=== PATIENT | male | born 1960 | race Caucasian/White ===

== ENCOUNTER 2017-09-16 13:49 | Observation (INO) | payer OTHER ==
[2017-09-16] MEDS ORDERED: Sodium Chloride 0.9% 1,000 ML IV ONE (13:58)
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
--- NOTE | 2017-09-16 14:09 | CR ---
EXAMINATION: Portable chest radiograph. HISTORY: Shortness of breath. FINDINGS: The trachea is midline. The cardiomediastinal silhouette is within normal limits. Mild left basilar a telectasis and/or infiltrate. No pleural effusion or pneumothorax. Osseous structures appear unremarkable. IMPRESSION: Mild left basilar atelectasis and/or infiltrate.
--- NOTE | 2017-09-16 14:12 | CR ---
EXAMINATION: Pelvis HISTORY: Pain COMPARISON: None TECHNIQUE: Single AP view FINDINGS: There is no acute osseous abnormality, dislocation, or fracture. Mild widening of the femor al heads bilaterally. Old healed fracture deformity of the left femur. SI joints are symmetric. The i liopectineal and ilioischial lines are intact. IMPRESSION: No acute osseous abnormality noted.
--- NOTE | 2017-09-16 14:22 | CT ---
EXAMINATION: Non contrast CT head. Coronal and sagittal reformats. HISTORY: Pain FINDINGS: No evidence of intra or extra axial hemorrhage, mass, midline shift, hydrocephalus or edema. No hypoattenuation changes in the major vascular territories to suggest acute infarct. No abnormal intracranial calcifications are detected. No evidence of substantial vascular calcificat ions. Paranasal sinuses and mastoid air cells are well aerated without substantial findings. Orbits and gl obes are symmetric. Pituitary fossa appears unremarkable. Calvarium is intact. No evidence of skull fracture. IMPRESSION: No acute intracranial findings.
--- NOTE | 2017-09-16 14:31 | CT ---
EXAMINATION: CT cervical spine without contrast HISTORY: Pain COMPARISON: None TECHNIQUE: Axial CT images obtained through the cervical spine without contrast. Coronal and sagittal reconstructions obtained. The cervical spinal alignment is normal. Vertebral body heights and disc s paces appear well-maintained. FINDINGS: There is a fracture through the base of the superior facet at C7 on the left extending slig htly into the transverse process. There is possibly a minimal fracture component along the overlying inferior facet of T6. The superior T6 silhouette does not appear to be. Chest however the superior T7 process appears minimally displaced anteriorly. Otherwise no acute osseous abnormality identified. B one mineralization is normal. Early marginal osteophytes are demonstrated. Prevertebral soft tissues are within normal limits. No significant soft tissue swelling. Lung apices are clear. IMPRESSION: 1. Essentially nondisplaced fracture through the superior left facet at C7 and a tiny fracture along the inferior aspect of the inferior left C6 facet. 2. Otherwise no acute findings noted.
--- NOTE | 2017-09-16 14:44 | CR ---
EXAMINATION: Left forearm HISTORY: Pain COMPARISON: None TECHNIQUE: 2 views FINDINGS/IMPRESSION: There is no acute osseous abnormality, dislocation, or fracture. Follow minerali zation and joint spaces appear preserved. Minimal soft tissue swelling overlying the olecranon. Proba ble old ulnar styloid fracture.
[2017-09-16] MEDS ORDERED: Morphine 2 MG/ML Syringe IVPUSH ONE ×2 (14:54→15:16)
[2017-09-16 15:16] LABS: CHLORIDE,CL 103 mmol/L (98-107); SODIUM,NA 138 mmol/L (136-148)
[2017-09-16] MEDS ORDERED: Diphtheria,Pertussis(Acell),Tetanus Vaccine 0.5 ML Syringe IM ONE (16:05)
[2017-09-16] MEDS ORDERED: Ondansetron 4 MG/2 ML SDV IVPUSH PRN (16:36)
[2017-09-16] MEDS ORDERED: Bisacodyl 5 MG Tab PO PRN (16:36)
[2017-09-16] MEDS ORDERED: diphenhydrAMINE 50 MG/ML SDV IVPUSH PRN (16:36)
[2017-09-16] MEDS ORDERED: Acetaminophen/oxyCODONE 325-5 MG Tab PO PRN (16:36)
[2017-09-16] MEDS ORDERED: HYDROmorphone 2 MG/ML SDV IVPUSH PRN (16:36)
[2017-09-16] MEDS ORDERED: Ketorolac 15 MG/ML SDV IM SCH (16:45)
[2017-09-16] MEDS ORDERED: Lactated Ringers 1,000 ML IV SCH (16:45)
[2017-09-16] MEDS ORDERED: Acetaminophen/oxyCODONE 325-5 MG Tab PO ONE (17:01)
[2017-09-16] MEDS ORDERED: HYDROmorphone 1 MG/ML Syringe IVPUSH ONE (17:08)
[2017-09-16] MEDS ORDERED: HYDROmorphone 1 MG/ML Syringe ONE (17:09)
[2017-09-16] MEDS: Cyclobenzaprine 5 MG Tab PO SCH ×2 (19:49→22:17)
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
[2017-09-16] MEDS: Ketorolac 10 MG Tab PO SCH (22:16)
[2017-09-17] MEDS: Ketorolac 10 MG Tab PO SCH ×2 (04:38→09:40)
[2017-09-17] MEDS: Cyclobenzaprine 5 MG Tab PO SCH ×2 (06:24→13:16)
[2017-09-17] MEDS ORDERED: Tamsulosin 0.4 MG Cap.ER PO SCH (08:30)
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
[2017-09-17] MEDS ORDERED: HYDROmorphone 2 MG Tab PO PRN (09:57)
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
--- NOTE | 2017-09-18 09:31 | CR ---
EXAM DATE: 09/16/17 PATIENT'S AGE: 57 Patient: SHAUNNA ROSAS Facility: [place], [place] Site . Site : 1960 Study: XRay Extremity Left elbow [id number]/3/2018 5:11:09 PM Ordering Physician: Felicia Hatfield Final Report: INDICATION: pain over olecranon TECHNIQUE: Two views of the left elbow COMPARISON: None FINDINGS: Bones: No fractures or bone lesions. Joint spaces: Unremarkable. Soft tissues: Unremarkable. IMPRESSION: No acute bony abnormality Dictated by Chalino Paz MD @ 09/16/2017 5:54:10 PM Dictated by: Chalino Paz MD @ 09/16/2017 17:54:19 (Electronic Signature) Report Signed by Proxy. [facility]
== END 2017-09-17 14:00 | disposition home or self-care (01) ==
LOC: MW.ED 13:49 → MW.MS 16:36
PROVIDERS: ADMIT Surgery; ATTEND Surgery
DX: S22.010A Wedge compression fracture of first thoracic vertebra, initial encounter for closed fracture (principal); S22.050A Wedge compression fracture of T5-T6 vertebra, initial encounter for closed fracture; S12.501A Unspecified nondisplaced fracture of sixth cervical vertebra, initial encounter for closed fracture; S12.601A Unspecified nondisplaced fracture of seventh cervical vertebra, initial encounter for closed fracture; S22.32XA Fracture of one rib, left side, initial encounter for closed fracture; S22.31XA Fracture of one rib, right side, initial encounter for closed fracture; S22.21XA Fracture of manubrium, initial encounter for closed fracture; H11.31 Conjunctival hemorrhage, right eye; R20.2 Paresthesia of skin; V69.9XXA Occupant (driver) (passenger) of heavy transport vehicle injured in unspecified traffic accident, initial encounter; Z91.041 Radiographic dye allergy status; Z87.891 Personal history of nicotine dependence
CPT/HCPCS: 36415; 70450; 71045; 71250; 72125; 72170; 73070; 73090; 74176; 80053; 80305; 81001; 84484; 85025; 85610; 90471; 90715; 93005; 96361; 96374; 96375; 99285; A9270; G0480; J1170; J2270; J7040; J7120

== ENCOUNTER 2018-09-01 08:44 | Day surgery (SDC) | payer BC ==
[~2018-09-01 08:44] MED LIST: Sodium Chloride 0.9% 10 ML SDV IV PRN; Sodium Chloride 0.9% 10 ML Syringe FLUSH PRN; Sodium Chloride 0.9% 2.5 ML Syringe FLUSH PRN; ceFAZolin 1 GM in Premix Bag 1 BAG IV ONE
[2018-09-01] MEDS: Lactated Ringers 1,000 ML IV SCH ×2 (09:00→16:47)
--- NOTE | 2018-09-01 10:03 | PCM.PREANE ---
Preanesthetic Assessment - Anesthesia/Transfusion/Family Hx Anesthesia History: Prior Anesthesia Without Reaction Family History of Anesthesia Reaction: No Transfusion History: No Prior Transfusion(s) - Review of Systems General: No Symptoms Pulmonary: No Symptoms Cardiovascular: No Symptoms Gastrointestinal: No Symptoms Neurological: No Symptoms Other: Reports: None - Physical Assessment NPO Status Date: 08/31/18 O2 Sat by Pulse Oximetry: 96 Respiratory Rate: 18 Vital Signs: Last Vital Signs Temp 97.2 F 09/01/18 09:00 Pulse 58 L 09/01/18 09:00 Resp 18 09/01/18 09:00 BP 141/89 H 09/01/18 09:00 Pulse Ox 96 09/01/18 09:00 Height: 6 ft Weight: 89.811 kg ASA Class: 2 Mental Status: Alert & Oriented x3 Airway Class: Mallampati = 2 Dentition: Reports: Milaca(s) (most teeth maxillary and mandibular) ROM/Head Extension: Full Lungs: Clear to Auscultation, Normal Respiratory Effort Cardiovascular: Regular Rate, Regular Rhythm - Allergies Allergies/Adverse Reactions: Allergies Allergy/AdvReac Type Severity Reaction Status Date / Time IV dye Allergy Rash Uncoded 08/26/18 11:59 - Blood Blood Available: No - Anesthesia Plan Pre-Op Medication Ordered: None - Acknowledgements Anesthesia Type Planned: Spinal Pt an Appropriate Candidate for the Planned Anesthesia: Yes Alternatives and Risks of Anesthesia Discussed w Pt/Guardian: Yes Pt/Guardian Understands and Agrees with Anesthesia Plan: Yes Additional Comments: anes prob list: smoker PLAN: spinal with sedation PreAnesthesia Questionnaire HEENT History: Reports: Hard of Hearing, Other (See Below) Other HEENT History: wears glasses, has bilateral hearing aides Cardiovascular History: Reports: None Respiratory History: Reports: None Gastrointestinal History: Reports: GERD Genitourinary History: Reports: Renal Calculus, Other (See Below) Other Genitourinary History: nocturia, urinary retention, kidney stone found on X-Ray- unsure if he passed it Musculoskeletal History: Reports: Fracture, Neck Pain, Chronic Other Musculoskeletal History: hx of fx clavicle, femur Neurological History: Reports: None Psychiatric History: Reports: None Endocrine/Metabolic History: Reports: None Dermatologic History: Reports: None - Infectious Disease History Infectious Disease History: Reports: Chicken Pox - Past Surgical History Head Surgeries/Procedures: Reports: None Musculoskeletal Surgical History: Reports: ORIF, Other (See Below) Other Musculoskeletal Surgeries/Procedures:: ORIF left femur (still has screws) , right ACL repair - SUBSTANCE USE Smoking Status *Q: Former Smoker Tobacco Use Within Last Twelve Months: No Days Per Week of Alcohol Use: 3 Number of Drinks Per Day: 2 Total Drinks Per Week: 6 Recreational Drug Use History: No - HOME MEDS Home Medications: Home Meds Tamsulosin HCl 0.4 mg PO DAILY 09/16/17 [History] Omeprazole 20 mg PO DAILY PRN 08/26/18 [History] traZODone HCl [Trazodone HCl] 50 mg PO BEDTIME PRN 08/26/18 [History] - CURRENT (IN HOUSE) MEDS Current Meds: Current Medications Lactated Ringer's (Ringers, Lactated) 1,000 mls @ 100 mls/hr IV ASDIRECTED [place] Last Admin: 09/01/18 09:00 Dose: 100 mls/hr Sodium Chloride (Saline Flush) 10 ml FLUSH ASDIRECTED PRN PRN Reason: Keep Vein Open Sodium Chloride (Saline Flush) 2.5 ml FLUSH ASDIRECTED PRN PRN Reason: Keep Vein Open Sodium Chloride (Normal Saline) 10 ml IV ASDIRECTED PRN PRN Reason: IV Use Discontinued Medications Cefazolin Sodium/Dextrose 1 gm (/ Premix) 50 mls @ 100 mls/hr IV ONCALL ONE Stop: 09/01/18 00:34
[2018-09-01] MEDS ORDERED: Propofol 200 MG/20 ML SDV ONE (10:12)
[2018-09-01] MEDS ORDERED: Midazolam 1 MG/ML 2 ML SDV ONE ×2 (10:12→10:53)
[2018-09-01] MEDS ORDERED: ceFAZolin 1 GM Vial ONE (11:09)
[2018-09-01] MEDS ORDERED: Belladonna Alkaloids/Opium 16.2-30 MG Supp RECTAL PRN (12:33)
[2018-09-01] MEDS ORDERED: Omeprazole 20 MG Cap.CR PO PRN (12:35)
[2018-09-01] MEDS ORDERED: traZODone 50 MG Tab PO PRN (12:35)
[2018-09-01] MEDS ORDERED: D5 1/2 NS w/ 20 mEq/L KCl 1,000 ML IV SCH (12:45)
--- NOTE | 2018-09-01 13:45 | PCM.POSTAN ---
POST ANESTHESIA ASSESSMENT - MENTAL STATUS Mental Status: Alert, Oriented - RESPIRATORY Respiratory Status: Respiratory Rate WNL, Airway Patent, O2 Saturation Stable - CARDIOVASCULAR CV Status: Pulse Rate WNL, Blood Pressure Stable - GASTROINTESTINAL GI Status: No Symptoms - POST OP HYDRATION Hydration Status: Adequate & Stable
[2018-09-01] MEDS: Bacitracin Oint 28.35 GM Tube TOP SCH ×2 (16:48→21:00)
[2018-09-01] MEDS: Docusate Sodium 100 MG Cap PO SCH (20:58)
[2018-09-02] MEDS: Lactated Ringers 1,000 ML IV SCH (03:34)
[2018-09-02] MEDS: Bacitracin Oint 28.35 GM Tube TOP SCH ×2 (06:37→14:01)
[2018-09-02] MEDS: Docusate Sodium 100 MG Cap PO SCH (09:20)
[2018-09-02] MEDS ORDERED: Acetaminophen 325 MG Tab PO PRN (11:53)
--- NOTE | 2018-09-03 00:31 | DISCH ---
DATE OF DISCHARGE: 09/02/2018 PRIMARY CARE PHYSICIAN: Victorino Andrew M.D. HOSPITAL COURSE: A 58-year-old. He was seen in the office with obstructive urinary symptoms; had a prostate ultrasound that showed an adenoma that measured 16 mL, but the majority of it was the median lobe projecting inside the bladder. Arranged for him to have a TURP, which he had done yesterday. Postoperatively, he remained stable. His postoperative course was uneventful. His catheter was taken out on the first postop day. He was discharged on the first postop day. Discharge medications none. I will contact him with the path report when that becomes available. He is to come back and see me as needed. MONIKA / HARLEY /[id number]
--- NOTE | 2018-09-08 08:43 | OR ---
SURGEON: Josefina Snow M.D. DATE OF PROCEDURE: 09/01/2018 PREOPERATIVE DIAGNOSIS: BPH with obstructive urinary symptoms. POSTOPERATIVE DIAGNOSIS: BPH with obstructive urinary symptoms. OPERATION: Transurethral resection of the prostate. DESCRIPTION OF PROCEDURE: The patient was given spinal anesthesia, placed in dorsolithotomy position, prepped and draped in sterile drapes. The 26-Khmer resectoscope was introduced in the bladder without difficulty. The inside of the bladder was examined. It showed 3 to 4+ trabeculated bladder with large median lobe. The prostate was resected, starting with the median lobe and the floor of the prostatic urethra, going on laterally and anteriorly. At the end of the resection, all prostatic chips were removed. Both ureteral orifices were intact. The area of the external sphincter was intact. A 22 three-way Bennett catheter with 7 mL in the balloon was left in the bladder, connected to TUR drip. Estimated blood loss, under 300 mL. The patient tolerated the procedure well and left the room in good condition. MONIKA / HARLEY /[id number]
== END 2018-09-02 18:05 | disposition home or self-care (01) ==
LOC: MW.SDS 08:44 → MW.MS 14:02 → MW.SDS 14:16 → UNDOADMOB 14:16 → MW.MS 14:16 → UNDODISOB 09-02 18:05 → MW.SDS 09-02 18:05
PROVIDERS: ATTEND Urology
DX: N40.1 Benign prostatic hyperplasia with lower urinary tract symptoms (principal); R35.0 Frequency of micturition; K21.9 Gastro-esophageal reflux disease without esophagitis; Z87.891 Personal history of nicotine dependence; Z79.899 Other long term (current) drug therapy; Z91.041 Radiographic dye allergy status
CPT/HCPCS: 52601; 82962; 88305; A9270; J0690; J2250; J2704; J7120; 00914

== ENCOUNTER 2020-12-09 13:47 | Emergency (ER) | payer BC, OTHER ==
[2020-12-09] MEDS ORDERED: Sodium Chloride 0.9% 2.5 ML Syringe FLUSH PRN (14:02)
[2020-12-09] MEDS ORDERED: Sodium Chloride 0.9% 1,000 ML IV ONE (14:02)
[2020-12-09] MEDS ORDERED: Sodium Chloride 0.9% 10 ML Syringe FLUSH PRN (14:02)
[2020-12-09] MEDS ORDERED: Ondansetron 4 MG/2 ML SDV IVPUSH ONE (14:02)
--- NOTE | 2020-12-09 14:03 | EDM.PDOC ---
ED HPI GENERAL MEDICAL PROBLEM - General Chief Complaint: General Stated Complaint: EMS Time Seen by Provider: 12/09/20 13:48 Source of Information: Reports: Patient History Limitations: Reports: No Limitations - History of Present Illness INITIAL COMMENTS - FREE TEXT/NARRATIVE: HISTORY AND PHYSICAL: History of present illness: The patient is a 60-year-old male who presents to the emergency room via EMS due to complaints of dizziness which started yesterday. The patient states that he became dizzy whenever he moved and went to bed around 10:00 last night. He woke up this morning in the 70s he sat up in bed became dizzy. He thought he could work through it, however, he started having nausea and vomiting with movement. The patient states he has never had this before. The patient has not had any new medications. The patient denies any kind of trauma or falls. The patient denies any chest pain or chest pressure or chest discomfort. The patient denies any kind of diaphoresis. Patient denies any shortness of breath or cough. The patient states that his bowel movements have been normal. Patient states that he feels weakness and frustration during the episodes. He does not have limb weakness or confusion during the episodes. Prior to yesterday the patient had been eating and drinking without difficulty. In the emergency department the patient is hemodynamically stable with a pulse of 63, blood pressure 145/80, SPO2 96% on room air. Review of systems: As per history of present illness and below otherwise all systems reviewed and negative. Past medical history: As per history of present illness and as reviewed below otherwise noncontributory. Surgical history: As per history of present illness and as reviewed below otherwise noncontributor y. Social history: See social history for further information Family history: As per history of present illness and as reviewed below otherwise noncontributory. Physical exam: General: Well developed and well nourished. Alert and orientated x 3. Nontoxic in appearance and in no acute distress. Vital signs are stable and have been reviewed by me. Nursing notes were reviewed. HEENT: Atraumatic, normocephalic, pupils equal and reactive bilaterally, negative for conjunctival pallor or scleral icterus, mucous membranes moist, TMs normal bilaterally, throat clear, neck supple, nontender, trachea midline. No drooling or trismus noted. No meningeal signs. No hot potato voice noted. Lungs: Clear to auscultation bilaterally. No wheezes, rales, or rhonchi. Chest nontender. Normal work of breathing, no accessory muscles used. Heart: S1S2, regular rate and rhythm without overt murmur, gallops, or rubs. No JVD. No peripheral edema Abdomen: Soft, nondistended, nontender. Normoactive bowel sounds. Negative for masses or costovertebral tenderness. Skin: Intact, warm, dry. No lesions or rashes noted. Hematologic: No petechiae or purpra. Mucosa appropriate color and normal nail bed color and refill. Extremities: Atraumatic, moves all extremities per self without difficulty or deficits, negative for cords or calf pain. Neurovascular unremarkable. Neuro: Awake, alert, oriented. Cranial nerves II through XII unremarkable. Cerebellum unremarkable. Motor and sensory unremarkable throughout. Exam nonfocal. Psychiatric: Mood and affect are appropriate. Normal thought process. Answering questions appropriately. Notes: *This patient was seen and evaluated during the 2019 SARS-CoV-2 novel coronavirus pandemic period. Community viral transmission is ongoing at time of this encounter and the emergency department is operating under pandemic response procedures. Stated above patient is a 60-year-old male who presents to the emergency room with complaints of dizziness that started yesterday. Patient states that he was able to sleep during the night with extreme dizziness this morning. He has having nausea and vomiting associated with dizziness. I will do endocardial and obtain head CT. I will give the patient IV fluids and IV Zofran. The patient is agreeable with this plan. The patient's blood work is essentially normal. His troponin was negative. Head CT impression: No acute intracranial abnormality. Consulted with DR. Thornton regarding patient and he requested order of head and neck angio but the patient is allergic to IV Dye. I will discontinue the angio orders and await the rest of the labs. Chest x-ray IMPRESSION: No acute airspace disease. I will give the patient meclizine 25 mg for his dizziness. The patient's CBC is remarkable for RBC of 4.38, MCH 33.8. The patient's CMP is remarkable for a glucose of 112, calcium 7.4 and total bilirubin of 1.3. The patient's troponin is within normal limits. The patient was given meclizine 25 mg orally and after 25 to 30 minutes the patient was able to set up without experiencing nausea. The patient will be discharged home with instructions to follow-up with his primary care for pain of the head or ENT for definitive treatment. I will prescribe meclizine 25 mg every 6 hours needed for dizziness and Zofran 4 mg ODT every 6 hours as needed for nausea. I have given the patient detailed instructions on when to return to the emergency room. If the patient has increased dizziness and is not controlled with the meclizine or if symptoms worsen or change he is to return to the room. The patient is agreeable with this discharge plan. I have talked with the patient about today's findings, in addition to providing specific details for plan of care. Reassessment at the time of disposition demonstrates that the patient is in no acute distress. The patient is stable for discharge, counseling was provided and we discussed in great detail signs and symptoms that would prompt them to return to the Emergency Department. Medication, follow up and supportive care measures were reviewed and discussed. Voices understanding and is agreeable to plan of care. Denies any further questions or concerns at this time. Diagnostics: CBC, CMP, troponin, EKG, CXR, head CT, magnesium Therapeutics: Fluids, Zofran, meclizine Prescription: Zofran 4 mg ODT every 6 hours as needed for nausea #10 Impression: Dizziness Plan: 1. You were evaluated today on an emergent basis. Your complaints of dizziness was evaluated with a head CT which was found to be negative. Your blood work was within normal limits. Your cardiac enzymes were negative. Your EKG was not abnormal. You were given IV fluids and Zofran for your nausea. You were given meclizine 25 mg by mouth for your dizziness. I recommend that you follow-up with your primary care for a possible outpatient had MRI or referral to ENT for definitive treatment of your dizziness. This most likely is an inner ear abnormality. I have prescribed meclizine 25 mg for dizziness and Zofran for nausea to manage her symptoms. 2. You can alternate Tylenol and ibuprofen as needed for pain and fever management. 3. We encourage you to follow up with your primary care provider and/or recommended specialist in the next few days for re-evaluation and further care/management. 4. If your symptoms should worsen, new symptoms develop or any of the signs and symptoms we discussed should arise please return to the emergency room or call 911 (if needed). Definitive disposition and diagnosis as appropriate pending reevaluation and review of above. - Related Data Allergies Allergy/AdvReac Type Severity Reaction Status Date / Time IV dye Allergy Rash Uncoded 09/01/18 21:06 Home Meds: Home Meds Tamsulosin HCl 0.4 mg PO DAILY 09/16/17 [History] Omeprazole 20 mg PO DAILY PRN 08/26/18 [History] traZODone HCl [Trazodone HCl] 50 mg PO BEDTIME PRN 08/26/18 [History] Meclizine [Antivert] 25 mg PO Q6H PRN 5 Days #20 tab 12/09/20 [Rx] Ondansetron [Zofran ODT] 4 mg PO Q6H PRN #10 tab.dis 12/09/20 [Rx] Past Medical History HEENT History: Reports: Hard of Hearing, Other (See Below) Other HEENT History: wears glasses, has bilateral hearing aides Cardiovascular History: Reports: None Respiratory History: Reports: None Gastrointestinal History: Reports: GERD Genitourinary History: Reports: Renal Calculus, Other (See Below) Other Genitourinary History: nocturia, urinary retention, kidney stone found on X-Ray- unsure if he passed it Musculoskeletal History: Reports: Fracture, Neck Pain, Chronic Other Musculoskeletal History: hx of fx clavicle, femur Neurological History: Reports: None Psychiatric History: Reports: None Endocrine/Metabolic History: Reports: None Dermatologic History: Reports: None - Infectious Disease History Infectious Disease History: Reports: Chicken Pox - Past Surgical History Head Surgeries/Procedures: Reports: None Musculoskeletal Surgical History: Reports: ORIF, Other (See Below) Other Musculoskeletal Surgeries/Procedures:: ORIF left femur (still has screws), right ACL repair Social & Family History - Family History Family Medical History: No Pertinent Family History - Caffeine Use Caffeine Use: Reports: Coffee, Soda ED ROS GENERAL - Review of Systems Review Of Systems: Comprehensive ROS is negative, except as noted in HPI. ED EXAM, GENERAL - Physical Exam Exam: See Below (See dictation) Course - Vital Signs Last Recorded V/S: Last Vital Signs Temp Pulse 61 12/09/20 14:28 Resp 18 12/09/20 14:28 BP 155/86 H 12/09/20 14:28 Pulse Ox 97 12/09/20 14:28 - Orders/Labs/Meds Orders: Active Orders 24 hr Category Date Time Status Ang Head [CT] Stat Exams 12/09/20 15:02 Stop Req Ang Neck [CT] Stat Exams 12/09/20 15:02 Stop Req Sodium Chloride 0.9% [Saline Flush] Med 12/09/20 14:02 Active 10 ml FLUSH ASDIRECTED PRN Sodium Chloride 0.9% [Saline Flush] Med 12/09/20 14:02 Active 2.5 ml FLUSH ASDIRECTED PRN Saline Lock Insert [OM.PC] Stat Oth 12/09/20 14:02 Ordered Medication Orders Sodium Chloride (Sodium Chloride 0.9% 10 Ml Syringe) 10 ml FLUSH ASDIRECTED PRN PRN Reason: Keep Vein Open Last Admin: 12/09/20 14:26 Dose: 10 ml Documented by: CALVIN Sodium Chloride (Sodium Chloride 0.9% 2.5 Ml Syringe) 2.5 ml FLUSH ASDIRECTED PRN PRN Reason: Keep Vein Open Last Admin: 12/09/20 14:26 Dose: 2.5 ml Documented by: CALVIN Labs: Laboratory Tests 12/09/20 12/09/20 Range/Units 14:56 14:56 WBC 7.34 (4.0-11.0) K/uL RBC 4.38 L (4.50-5.90) M/uL Hgb 14.8 (13.0-17.0) g/dL Hct 40.8 (38.0-50.0) % MCV 93.2 (80.0-98.0) fL MCH 33.8 H (27.0-32.0) pg MCHC 36.3 (31.0-37.0) g/dL RDW Std Deviation 42.3 (28.0-62.0) fl RDW Coeff of Madeline 13 (11.0-15.0) % Plt Count 181 (150-400) K/uL MPV 9.50 (7.40-12.00) fL Neut % (Auto) 86.1 H (48.0-80.0) % Lymph % (Auto) 9.1 L (16.0-40.0) % Brooks % (Auto) 4.4 (0.0-15.0) % Eos % (Auto) 0.3 (0.0-7.0) % Baso % (Auto) 0.1 (0.0-1.5) % Neut # (Auto) 6.3 H (1.4-5.7) K/uL Lymph # (Auto) 0.7 (0.6-2.4) K/uL Brooks # (Auto) 0.3 (0.0-0.8) K/uL Eos # (Auto) 0.0 (0.0-0.7) K/uL Baso # (Auto) 0.0 (0.0-0.1) K/uL Nucleated RBC % 0.0 /100WBC Nucleated RBCs # 0 K/uL Sodium 139 (136-148) mmol/L Potassium 4.0 (3.5-5.1) mmol/L Chloride 106 (98-107) mmol/L Carbon Dioxide 26.9 (21.0-32.0) mmol/L BUN 17 (7.0-18.0) mg/dL Creatinine 0.9 (0.8-1.3) mg/dL Est Cr Clr Drug Dosing TNP Estimated GFR (MDRD) > 60.0 ml/min Glucose 112 H (74-106) mg/dL Calcium 7.4 L (8.5-10.1) mg/dL Magnesium 2.1 (1.8-2.4) mg/dL Total Bilirubin 1.3 H (0.2-1.0) mg/dL AST 19 (15-37) IU/L ALT 44 (14-63) IU/L Alkaline Phosphatase 85 (46-116) U/L Troponin I < 0.050 (0.000-0.056) ng/mL Total Protein 6.4 (6.4-8.2) g/dL Albumin 3.6 (3.4-5.0) g/dL Globulin 2.8 (2.6-4.0) g/dL Albumin/Globulin Ratio 1.3 (0.9-1.6) Meds: Medications Generic Name Dose Route Start Last Admin Trade Name Freq PRN Reason Stop Dose Admin Sodium Chloride 10 ml 12/09/20 14:02 12/09/20 14:26 Sodium Chloride 0.9% 10 Ml Syringe FLUSH 10 ml ASDIRECTED PRN Administration Keep Vein Open Sodium Chloride 2.5 ml 12/09/20 14:02 12/09/20 14:26 Sodium Chloride 0.9% 2.5 Ml Syringe FLUSH 2.5 ml ASDIRECTED PRN Administration Keep Vein Open Discontinued Medications Generic Name Dose Route Start Last Admin Trade Name Freq PRN Reason Stop Dose Admin Aspirin 325 mg 12/09/20 15:15 12/09/20 16:02 Aspirin 325 Mg Tab.Ec PO 12/09/20 15:16 325 mg ONETIME ONE Administration Sodium Chloride 1,000 mls @ 999 mls/hr 12/09/20 14:02 12/09/20 14:26 Normal Saline IV 12/09/20 15:02 999 mls/hr .BOLUS ONE Administration Meclizine HCl 25 mg 12/09/20 15:14 12/09/20 16:02 Meclizine 25 Mg Tab PO 12/09/20 15:15 25 mg ONETIME ONE Administration Ondansetron HCl 4 mg 12/09/20 14:02 12/09/20 14:26 Ondansetron 4 Mg/2 Ml Sdv IVPUSH 12/09/20 14:03 4 mg ONETIME ONE Administration Departure - Departure Time of Disposition: 16:26 Disposition: Home, Self-Care 01 Condition: Good Clinical Impression: Dizziness - Discharge Information *PRESCRIPTION DRUG MONITORING PROGRAM REVIEWED*: Not Applicable *COPY OF PRESCRIPTION DRUG MONITORING REPORT IN PATIENT LUIZ: Not Applicable Prescriptions: Meclizine [Antivert] 25 mg PO Q6H PRN 5 Days #20 tab PRN Reason: Dizziness Ondansetron [Zofran ODT] 4 mg PO Q6H PRN #10 tab.dis PRN Reason: Nausea Instructions: Dizziness, [id number] Referrals: PCP,None [Ordering Only Provider] - Forms: ED Department Discharge Additional Instructions: The following information is given to patients seen in the emergency department who are being discharged to home. This information is to outline your options for follow-up care. We provide all patients seen in our emergency department with a follow-up referral. The need for follow-up, as well as the timing and circumstances, are variable depending upon the specifics of your emergency department visit. If you don't have a primary care physician on staff, we will provide you with a referral. We always advise you to contact your personal physician following an emergency department visit to inform them of the circumstance of the visit and for follow-up with them and/or the need for any referrals to a consulting specialist. The emergency department will also refer you to a specialist when appropriate. This referral assures that you have the opportunity for follow-up care with a specialist. All of these measure are taken in an effort to provide you with optimal care, which includes your follow-up. Under all circumstances we always encourage you to contact your private physician who remains a resource for coordinating your care. When calling for follow-up care, please make the office aware that this follow-up is from your recent emergency room visit. If for any reason you are refused follow-up, please contact the [facility] Emergency Department at and asked to speak to the emergency department charge nurse. [facility] [address] [place] [id number] [address] Plan: 1. You were evaluated today on an emergent basis. Your complaints of dizziness was evaluated with a head CT which was found to be negative. Your blood work was within normal limits. Your cardiac enzymes were negative. Your EKG was not abnormal. You were given IV fluids and Zofran for your nausea. You were given meclizine 25 mg by mouth for your dizziness. I recommend that you follow-up with your primary care for a possible outpatient had MRI or referral to ENT for definitive treatment of your dizziness. This most likely is an inner ear abnormality. I have prescribed meclizine 25 mg for dizziness and Zofran for nausea to manage her symptoms. 2. You can alternate Tylenol and ibuprofen as needed for pain and fever management. 3. We encourage you to follow up with your primary care provider and/or recommended specialist in the next few days for re-evaluation and further care/management. 4. If your symptoms should worsen, new symptoms develop or any of the signs and symptoms we discussed should arise please return to the emergency room or call 911 (if needed). Sepsis Event Note (ED) - Focused Exam Vital Signs: Vital Signs Pulse Resp BP Pulse Ox 12/09/20 14:28 61 18 155/86 H 97 - My Orders Last 24 Hours: My Active Orders 12/09/20 14:02 Sodium Chloride 0.9% [Saline Flush] 10 ml FLUSH ASDIRECTED PRN Sodium Chloride 0.9% [Saline Flush] 2.5 ml FLUSH ASDIRECTED PRN Saline Lock Insert [OM.PC] Stat 12/09/20 15:02 Ang Head [CT] Stat Ang Neck [CT] Stat - Assessment/Plan Last 24 Hours: My Active Orders 12/09/20 14:02 Sodium Chloride 0.9% [Saline Flush] 10 ml FLUSH ASDIRECTED PRN Sodium Chloride 0.9% [Saline Flush] 2.5 ml FLUSH ASDIRECTED PRN Saline Lock Insert [OM.PC] Stat 12/09/20 15:02 Ang Head [CT] Stat Ang Neck [CT] Stat
--- NOTE | 2020-12-09 14:29 | PCM.EKG ---
#1 Interpretation EKG Interpretation Comments: EKG done 12/09/2020 at 1:53 PM shows a sinus rhythm with a heart rate 60 IN [address] [place] I 03 QT duration 433 there is a right axis deviation impression is essentially normal EKG
--- NOTE | 2020-12-09 14:42 | CT ---
Indication: Weakness and dizziness. Technique: CT of the head without contrast. Coronal and sagittal reformats. Bone and soft tissue windows. Comparison: 02/05/2018 CT Findings: No acute intracranial hemorrhage or extra-axial collection. No evidence of acute cortical infarction. No mass effect or midline shift. Normal cerebral volume. The ventricles are normal in size, shape and contour. There is normal nguyen and white matter differentiation. The orbital contents are normal. No calvarial fractures. No lytic or sclerotic osseous lesions within the calvarium or skull base. Scalp and other imaged soft tissue structures are normal. Mastoid air cells are clear. Paranasal sinuses are well aerated. The nasal septum is deviated to the right Impression: No acute intracranial abnormality. Please note that all CT scans at this facility use dose modulation, iterative reconstruction, and/or weight-based dosing when appropriate to reduce radiation dose to as low as reasonably achievable. Dictated by Fabian Espitia MD @ 12/09/2020 2:41:34 PM (Electronically Signed)
--- NOTE | 2020-12-09 14:59 | CR ---
INDICATION: Weakness, dizziness. TECHNIQUE: Chest 1 view. COMPARISON: 09/16/17. FINDINGS: Cardiovascular and mediastinum: Heart size and vasculature are normal in caliber and appearance. Mediastinum is within normal limits. Lungs and pleural space: Lungs are clear. No sign of infiltrate or mass. No sign of pleural effusion. No pneumothorax. Bones and soft tissues: No significant findings. IMPRESSION: No acute airspace disease. Dictated by Victorino Poe MD @ 12/09/2020 2:58:18 PM (Electronically Signed)
[2020-12-09] MEDS ORDERED: Meclizine 25 MG Tab PO ONE (15:14)
[2020-12-09] MEDS ORDERED: Aspirin 325 MG Tab.EC PO ONE (15:15)
[2020-12-09 15:28] LABS: BLOOD UREA NITROGEN,BUN 17 mg/dL (7.0-18.0); CARBON DIOXIDE,CO2 26.9 mmol/L (21.0-32.0); CHLORIDE,CL 106 mmol/L (98-107); GLUCOSE RANDOM 112 mg/dL (74-106); SODIUM,NA 139 mmol/L (136-148)
== END 2020-12-09 16:42 | disposition home or self-care (01) ==
LOC: MW.ED 13:47
DX: R42 Dizziness and giddiness (principal); K21.9 Gastro-esophageal reflux disease without esophagitis; Z91.041 Radiographic dye allergy status; Z79.899 Other long term (current) drug therapy
CPT/HCPCS: 36415; 70450; 71045; 80053; 83735; 84484; 85025; 93005; 96374; 99285; A9270; J2405; J7030

== ENCOUNTER 2021-08-16 14:23 | Emergency (ER) | payer BC ==
[2021-08-16] MEDS ORDERED: Tetracaine HCl/PF 0.5% 4 ML Bottle EYEBOTH ONE (14:27)
== END 2021-08-16 15:04 | disposition home or self-care (01) ==
LOC: MW.ED 14:23
DX: T15.91XA Foreign body on external eye, part unspecified, right eye, initial encounter (principal); K21.9 Gastro-esophageal reflux disease without esophagitis; Z91.041 Radiographic dye allergy status; Z79.899 Other long term (current) drug therapy
CPT/HCPCS: 65220; 99283; 99283-25

== ENCOUNTER 2022-04-02 07:30 | Day surgery (SDC) | payer BC ==
[~2022-04-02 07:30] MED LIST changes: +Lactated Ringers 1,000 ML IV SCH; +Propofol 200 MG/20 ML SDV ONE; -Sodium Chloride 0.9% 10 ML SDV IV PRN; +Sodium Chloride 0.9% 20 ML SDV IV PRN; -ceFAZolin 1 GM in Premix Bag 1 BAG IV ONE; +fentaNYL 100 MCG/2 ML SDV ONE
== END 2022-04-02 10:40 | disposition home or self-care (01) ==
LOC: MW.SDS 07:30
PROVIDERS: ATTEND Surgery
DX: D12.5 Benign neoplasm of sigmoid colon (principal); D12.3 Benign neoplasm of transverse colon; I10 Essential (primary) hypertension; E78.00 Pure hypercholesterolemia, unspecified; M25.511 Pain in right shoulder; G89.29 Other chronic pain; K21.9 Gastro-esophageal reflux disease without esophagitis; G47.00 Insomnia, unspecified; Z79.899 Other long term (current) drug therapy; Z98.890 Other specified postprocedural states; Z91.041 Radiographic dye allergy status; Z87.891 Personal history of nicotine dependence
CPT/HCPCS: 45380; J2704; J3010; J7120; 00811

== ENCOUNTER 2022-06-07 13:35 | Emergency (ER) | payer BC ==
[2022-06-07 15:21] LABS: CARBON DIOXIDE,CO2 24.5 mmol/L (21.0-32.0); POTASSIUM,K 3.6 mmol/L (3.5-5.1)
== END 2022-06-07 16:17 | disposition home or self-care (01) ==
LOC: MW.ED 13:35
DX: R07.89 Other chest pain (principal); I10 Essential (primary) hypertension; K21.9 Gastro-esophageal reflux disease without esophagitis; Z91.041 Radiographic dye allergy status; Z79.899 Other long term (current) drug therapy
CPT/HCPCS: 36415; 71045; 71045-26; 80053; 84484; 85025; 93005; 93010; 99284; 99285

== ENCOUNTER 2023-04-30 09:53 | Day surgery (SDC) | payer BC ==
[~2023-04-30 09:53] MED LIST changes: +Acetaminophen 1,000 MG in Premix Bag 1 BAG IV SCH; -Lactated Ringers 1,000 ML IV SCH; -Propofol 200 MG/20 ML SDV ONE; -Sodium Chloride 0.9% 10 ML Syringe FLUSH PRN; -Sodium Chloride 0.9% 2.5 ML Syringe FLUSH PRN; -Sodium Chloride 0.9% 20 ML SDV IV PRN; +ceFAZolin 2 GM in Sodium Chloride 0.9% 50 ML IV ONE; -fentaNYL 100 MCG/2 ML SDV ONE
[2023-04-30] MEDS: Pregabalin 75 MG Cap PO SCH (10:29)
[2023-04-30] MEDS: Lactated Ringers 1,000 ML IV SCH (10:29)
[2023-04-30] MEDS ORDERED: Metoclopramide 10 MG/2 ML SDV IVPUSH PRN (10:41)
[2023-04-30] MEDS ORDERED: Ondansetron 4 MG/2 ML SDV IVPUSH PRN (10:41)
[2023-04-30] MEDS ORDERED: Morphine 2 MG/ML SYRINGE IVPUSH PRN (10:41)
[2023-04-30] MEDS ORDERED: droPERidol 5 MG/2 ML SDV IVPUSH PRN (10:41)
[2023-04-30] MEDS ORDERED: HYDROmorphone 1 MG/ML Syringe IVPUSH PRN (10:41)
[2023-04-30] MEDS ORDERED: Albuterol 0.083% 2.5 MG/3 ML Neb Soln NEB PRN (10:41)
[2023-04-30] MEDS ORDERED: Naloxone 0.4 MG/ML SDV IVPUSH PRN (10:41)
[2023-04-30] MEDS ORDERED: fentaNYL 50 MCG/ML SDV IVPUSH PRN (10:41)
[2023-04-30] MEDS ORDERED: Bupivacaine 0.25% 30 ML SDV ONE (11:30)
[2023-04-30] MEDS ORDERED: Famotidine 20 MG/2 ML SDV ONE (11:30)
[2023-04-30] MEDS ORDERED: Ropivacaine 0.5% 5 MG/ML 30 ML SDV ONE (11:30)
[2023-04-30] MEDS ORDERED: Morphine 10 MG/ML SDV ONE ×2 (11:31→12:59)
[2023-04-30] MEDS ORDERED: Propofol 200 MG/20 ML SDV ONE (11:31)
[2023-04-30] MEDS ORDERED: Rocuronium Bromide 50 MG/5 ML Syringe ONE ×2 (11:40→12:54)
[2023-04-30] MEDS ORDERED: Water For Injection, Sterile 20 ML ONE (11:40)
[2023-04-30] MEDS ORDERED: Bupivacaine 0.5% 30 ML SDV ONE (11:43)
[2023-04-30] MEDS ORDERED: ceFAZolin 2 GM Vial ONE (12:31)
[2023-04-30] MEDS ORDERED: Ketorolac 30 MG/ML SDV ONE ×2 (12:34→13:13)
[2023-04-30] MEDS ORDERED: Ondansetron 4 MG/2 ML SDV ONE (12:34)
[2023-04-30] MEDS ORDERED: Sugammadex Sodium 200 MG/2 ML VIAL IV ONE (13:13)
[2023-04-30] MEDS ORDERED: Dexamethasone 4 MG/ML 5 ML MDV ONE (14:05)
[2023-04-30] MEDS ORDERED: dexmedeTOMIDine HCl 200 MCG/2 ML SDV ONE (14:07)
== END 2023-04-30 15:20 | disposition home or self-care (01) ==
LOC: MW.SDS 09:53
PROVIDERS: ATTEND Surgery
DX: K40.90 Unilateral inguinal hernia, without obstruction or gangrene, not specified as recurrent (principal); F41.9 Anxiety disorder, unspecified; F32.A Depression, unspecified; E78.00 Pure hypercholesterolemia, unspecified; K21.9 Gastro-esophageal reflux disease without esophagitis; Z88.8 Allergy status to other drugs, medicaments and biological substances; I10 Essential (primary) hypertension; Z79.899 Other long term (current) drug therapy; Z98.890 Other specified postprocedural states; Z87.891 Personal history of nicotine dependence
CPT/HCPCS: 49650; 64488; A9270; J0665; J0690; J1100; J1885; J2270; J2405; J2704; J2795; J3490; J7120

== ENCOUNTER 2023-11-04 08:45 | Emergency (ER) | payer BC ==
[2023-11-04 09:10] LABS: BASOPHILS ABSOLUTE AUTO 0.04 K/uL (0.00-0.20); BASOPHILS PERCENT AUTO 0.7 % (0.0-1.0); EOSINOPHILS ABSOLUTE AUTO 0.22 K/uL (0.00-0.45); EOSINOPHILS PERCENT AUTO 3.7 % (0.0-6.0); HEMOGLOBIN 15.3 g/dL (14.0-18.0); IMMATURE GRAN ABSOLUTE AUTO 0.01 K/uL (0.00-0.05); IMMATURE GRAN PERCENT AUTO 0.2 % (0.0-0.4); LYMPHOCYTES ABSOLUTE AUTO 1.51 K/uL (1.00-4.80); LYMPHOCYTES PERCENT AUTO 25.5 % (24.0-44.0); MEAN CORPUSCULAR HGB CONC 37.3 g/dL (32.0-36.0); MEAN CORPUSCULAR VOLUME 93.8 fL (83.0-99.0); MEAN PLATELET VOLUME 9.6 fL (9.4-12.4); MONOCYTES ABSOLUTE AUTO 0.44 K/uL (0.00-0.80); MONOCYTES PERCENT AUTO 7.4 % (0.0-8.0); NEUTROPHILS ABSOLUTE AUTO 3.69 K/uL (1.80-7.70); NEUTROPHILS PERCENT AUTO 62.5 % (41.0-71.0); PLATELET COUNT,PLT 192 K/uL (150-400); RED BLOOD CELL COUNT 4.37 M/uL (4.52-5.90); WHITE BLOOD CELL COUNT,WBC 5.91 K/uL (3.9-11.3)
[2023-11-04 09:17] LABS: INR 1.01 (0.86-1.11)
[2023-11-04 09:28] LABS: A/G RATIO 1.3 (0.9-1.6); ALBUMIN 3.7 g/dL (3.4-5.0); BILIRUBIN TOTAL 0.6 mg/dL (0.2-1.0); CALCIUM 8.7 mg/dL (8.5-10.1); CARBON DIOXIDE,CO2 28.7 mmol/L (21.0-32.0); CREATININE 1.1 mg/dL (0.8-1.3); EST CRCL DRUG DOSING (CG) 65.64 mL/min; POTASSIUM,K 3.4 mmol/L (3.5-5.1); PROTEIN TOTAL,TP 6.6 g/dL (6.4-8.2)
== END 2023-11-04 12:56 | disposition home or self-care (01) ==
LOC: MW.ED 08:45
DX: R07.9 Chest pain, unspecified (principal); I10 Essential (primary) hypertension; E66.9 Obesity, unspecified; Z79.899 Other long term (current) drug therapy; Z91.041 Radiographic dye allergy status; Z75.8 Other problems related to medical facilities and other health care; Z68.30 Body mass index [BMI] 30.0-30.9, adult
CPT/HCPCS: 36415; 71045; 71045-26; 80053; 83690; 84484; 85025; 85610; 93005; 99285